=== PATIENT | female | born 1965 | race Caucasian/White ===

== ENCOUNTER 2018-07-20 10:49 | Observation (INO) ==
--- NOTE | 2018-07-20 11:15 | Emergency Department Note ---
Disposition Clinical Impression: Suicidal ideation Disposition: Admitted As Inpatient Condition: Good Psych HPI - General Chief Complaint: ED Psychiatric Symptoms Stated Complaint: SI Time Seen by Provider: 07/20/18 10:57 Source: patient Mode of arrival: private vehicle Limitations: no limitations Nursing Notes Reviewed: Yes Vital Signs Reviewed: Yes - History of Present Illness HPI Narrative: 52-year-old female history of depression presents for worsening depression and thoughts of suicidal ideation. Reports that she has had increased stress at her work. She has discussed with her boss for potentially changing her job. States that she has tried to hurt herself one time in the past requiring psychiatric admission by drug ingestion. Denies any auditory or visual hallucinations. She is not sure she would hurt herself or not. Denies any homicidal ideation. Denies any ingestions today. No alcohol or drug use. She reports compliance with her antidepressant medications. No other complaints. Pt complaint: suicidal ideation, feels depressed Onset (ago): day(s) Duration: constant History of similar episodes: Yes Improves with: none Worsens with: none Associated Psychiatric Symptoms: depression, suicidal ideation Associated symptoms: Reports: headache (from crying) Traumatic symptoms: denies traumatic injury Treatments prior to arrival: none Self harm or harm to others: admits thoughts of self harm - Related Data Home Medications Medication Instructions Recorded Confirmed Albuterol Sulfate [Albuterol 2 puff IH Q4HR PRN 06/07/16 06/07/16 Inhaler] Ascorbate Calcium [Vitamin C] 500 mg PO DAILY 06/07/16 06/07/16 Cholecalciferol (D-3) [Vitamin D] 1,000 unit PO MOTUWETHFR 06/07/16 06/07/16 Cholecalciferol (D-3) [Vitamin D] 2,000 unit PO SUSA 06/07/16 06/07/16 Citalopram [CeleXA] 20 mg PO HS 06/07/16 06/07/16 Docusate [Colace] 100 mg PO DAILY PRN 06/07/16 06/07/16 Lactobacillus Combination No.8 1 tab PO DAILY 06/07/16 06/07/16 [Adult Probiotic] [place]-3 Fatty Acids/Fish Oil 1 each PO DAILY 06/07/16 06/07/16 [[place]-3 Fish Oil 1,000 mg Sfgl] Tamoxifen [Nolvadex] 20 mg PO HS 06/07/16 06/07/16 Ubidecarenone [Co Q10] 100 mg PO DAILY 06/07/16 06/07/16 traMADol [Ultram] 50 mg PO DAILY PRN 06/07/16 06/07/16 Previous Rx's Medication Instructions Recorded Acetaminophen [Tylenol] 650 mg PO Q6HR PRN #0 tablet 03/11/16 Ibuprofen [Motrin] 600 mg PO Q6HR PRN #40 tab 06/08/16 OxyCODONE/APAP 5/325 [Percocet 1 each PO Q4HR PRN #40 tablet 06/08/16 5/325 MG] Amoxicillin 875 mg PO BID #14 tablet 01/07/17 Clindamycin [Cleocin] 150 mg PO Q6HR #7 capsule 09/08/17 HYDROcodone/Acet 5/325 mg [[place] 1 tab PO Q6H PRN #14 tab 09/08/17 5-325 mg] Ibuprofen [Motrin] 600 mg PO Q8HR #20 tab 09/08/17 Acyclovir [Zovirax] 800 mg PO 5XD #50 tablet 09/16/17 Amoxicillin 875 mg PO BID #20 tablet 09/16/17 Benzonatate [Tessalon] 200 mg PO TID PRN #30 capsule 10/09/17 cephALEXin [Keflex] 500 mg PO QID #40 capsule 10/09/17 methylPREDNISolone [Medrol] 4 mg PO TAPER #21 tablet 10/09/17 Allergies Allergy/AdvReac Type Severity Reaction Status Date / Time bupropion [From Wellbutrin] AdvReac HEART Verified 07/20/18 11:03 RACING fluoxetine [From Prozac] AdvReac HEART Verified 07/20/18 11:03 RACING All systems ED: reviewed and negative except as stated. Neurological: Reports: headache Psychiatric: Reports: anxiety, depression, suicidal thoughts. Denies: homicidal thoughts, auditory hallucinations, visual hallucinations Past Medical History - Past Medical History Attestation: Yes The following information was validated with the patient. Source: patient Medical history: Reports: cancer, kidney stones Surgical history: Reports: breast surgery, cancer surgery Psychiatric history: Reports: depression - Social History Smoking Status: Never smoker Smokeless Tobacco Status: No Alcohol use: Reports: none Drug use: Reports: none Physical Exam - General Limitations: no limitations General appearance: alert, other (Tearful) - Head Head exam: atraumatic, normocephalic, normal inspection - Eye Eye exam: Present: normal appearance - ENT ENT exam: normal exam - Neck Neck exam: Present: normal inspection - Chest Chest inspection: Present: normal inspection, symmetric chest wall rise - Respiratory Respiratory exam: Present: normal lung sounds bilaterally - Cardiovascular Cardiovascular exam: Present: regular rate, normal rhythm, normal heart sounds - Abdominal Exam Abdominal exam: Present: soft, Non-Tender. Absent: tenderness, distention, rigidity - Extremities Exam Extremities exam: Present: normal inspection, full ROM - Expanded Upper Extremity Exam Shoulder exam: Present: normal inspection, full ROM Arm exam: Present: normal inspection, full ROM Elbow exam: Present: normal inspection, full ROM Forearm/Wrist exam: Present: normal inspection, full ROM Hand exam: Present: normal inspection, full ROM - Expanded Lower Extremity Exam Hip/Pelvis exam: Present: normal inspection, full ROM Upper leg exam: Present: normal inspection, full ROM Knee exam: Present: normal inspection, full ROM Lower leg exam: Present: normal inspection, full ROM Ankle exam: Present: normal inspection, full ROM Foot/toe exam: Present: normal inspection, full ROM - Neurological Exam Neurological exam: Present: alert, other (GCS 15. No focal deficits) - Psychiatric Psychiatric exam: Present: anxious, suicidal ideation - Skin Skin exam: Present: warm, dry Course Course Narrative: Patient seen and examined. Medical clearance labs for psychiatric evaluation. [place] slipped for suicidal ideation. - Reevaluation(s) Reevaluation #1: Medically cleared. Evaluated by psychiatry. Deemed her appropriate for inpatient admission. Vital Signs Temperature 97.9 F 07/20/18 10:59 Pulse Rate 73 07/20/18 10:59 Respiratory Rate 16 07/20/18 10:59 Blood Pressure 137/89 07/20/18 10:59 O2 Sat by Pulse Oximetry 98 07/20/18 10:59 Temperature 97.9 F 07/20/18 10:59 Pulse Rate 73 07/20/18 10:59 Respiratory Rate 16 07/20/18 10:59 Blood Pressure 137/89 07/20/18 10:59 O2 Sat by Pulse Oximetry 98 07/20/18 10:59 Oxygen Delivery Oxygen Delivery Room Air Psych - MDM Narrative Medical decision making narrative: 52-year-old female with worsening depression and anxiety in conjunction with recent suicidal ideations. Medically cleared. Accepted to psychiatry for inpatient management. - Lab Data Lab results reviewed: Yes I reviewed the patient's lab results. Result diagrams: 07/20/18 12:33 07/20/18 12:33 Lab Results 07/20/18 07/20/18 07/20/18 Range/Units 11:36 11:36 12:33 WBC 5.4 (4.3-11.1) K/mcL RBC 4.80 (3.82-4.97) M/mcL Hgb 14.5 (11.5-15.4) g/dL Hct 42.3 (35.3-44.9) % MCV 88.1 (83.0-100.0) fL MCH 30.2 (28.0-33.3) pg MCHC 34.3 (31.6-35.5) g/dL RDW 12.3 (11.5-14.5) % Plt Count 126 L (140-400) K/mcL MPV 11.6 (9.4-12.4) fL Immature Gran % 0.2 (0-4) % Seg Neutrophils % 54.4 % Lymphocytes % 34.7 % Monocytes % 8.5 % Eosinophils % 1.8 % Basophils % 0.4 % Neutrophils # 3.0 (1.6-8.9) K/mcL Lymphocytes # 1.9 (0.6-4.6) K/mcL Monocytes # 0.5 (0.0-1.3) K/mcL Eosinophils # 0.1 (0.0-0.6) K/mcL Basophils # 0.0 (0.0-0.2) K/mcL Sodium (136-145) mEq/L Potassium (3.5-5.1) mEq/L Chloride (98-107) mEq/L Carbon Dioxide (23-29) mEq/L BUN (6-20) mg/dL Creatinine (0.60-1.20) mg/dL Est GFR ( Amer) (> 60) Est GFR (Non-Af Amer) (> 60) BUN/Creatinine Ratio (6-26) Glucose (70-105) mg/dL Calculated Osmolality (280-300) Calcium (8.6-10.3) mg/dL TSH (0.340-5.600) mcIU/mL Urine Color Yellow (Yellow) Urine Clarity Clear (Clear) Urine pH 6.0 (5.0-8.0) pH Units Ur Specific [place] 1.017 (1.010-1.025) Urine Protein Negative (Neg-Trace) mg/dL Urine Glucose (UA) Normal (Normal) mg/dL Urine Ketones Negative (Negative) mg/dL Urine Blood Negative (Negative) Urine Nitrite Negative (Negative) Urine Bilirubin Negative (Negative) Urine Urobilinogen Normal (Normal) mg/dL Ur Leukocyte Esterase Negative (Negative) Salicylates (15.0-30.0) mg/dL Urine Opiates Screen Negative (Jrezwm=763) ng/mL Acetaminophen (10-20) mcg/mL Ur Barbiturates Screen Negative (Snelfr=458) ng/mL Ur Phencyclidine Scrn Negative (Cutoff=25) ng/mL Ur Amphetamines Screen Negative (Jbqiiz=0202) ng/mL U Benzodiazepines Scrn Negative (Qqnazm=674) ng/mL Urine Cocaine Screen Negative (Cutoff= 300) ng/mL U Marijuana (THC) Screen Negative (Cutoff = 50) ng/mL Ur Drug Screen Interp See Below Ethyl Alcohol (Less than 10) mg/dL 07/20/18 Range/Units 12:33 WBC (4.3-11.1) K/mcL RBC (3.82-4.97) M/mcL Hgb (11.5-15.4) g/dL Hct (35.3-44.9) % MCV (83.0-100.0) fL MCH (28.0-33.3) pg MCHC (31.6-35.5) g/dL RDW (11.5-14.5) % Plt Count (140-400) K/mcL MPV (9.4-12.4) fL Immature Gran % (0-4) % Seg Neutrophils % % Lymphocytes % % Monocytes % % Eosinophils % % Basophils % % Neutrophils # (1.6-8.9) K/mcL Lymphocytes # (0.6-4.6) K/mcL Monocytes # (0.0-1.3) K/mcL Eosinophils # (0.0-0.6) K/mcL Basophils # (0.0-0.2) K/mcL Sodium 139 (136-145) mEq/L Potassium 4.2 (3.5-5.1) mEq/L Chloride 106 (98-107) mEq/L Carbon Dioxide 27 (23-29) mEq/L BUN 14 (6-20) mg/dL Creatinine 0.85 (0.60-1.20) mg/dL Est GFR ( Amer) > 60 (> 60) Est GFR (Non-Af Amer) > 60 (> 60) BUN/Creatinine Ratio 16 (6-26) Glucose 88 (70-105) mg/dL Calculated Osmolality 288 (280-300) Calcium 9.5 (8.6-10.3) mg/dL TSH 1.987 (0.340-5.600) mcIU/mL Urine Color (Yellow) Urine Clarity (Clear) Urine pH (5.0-8.0) pH Units Ur Specific [place] (1.010-1.025) Urine Protein (Neg-Trace) mg/dL Urine Glucose (UA) (Normal) mg/dL Urine Ketones (Negative) mg/dL Urine Blood (Negative) Urine Nitrite (Negative) Urine Bilirubin (Negative) Urine Urobilinogen (Normal) mg/dL Ur Leukocyte Esterase (Negative) Salicylates < 2.5 L (15.0-30.0) mg/dL Urine Opiates Screen (Jwrpiw=610) ng/mL Acetaminophen < 10 L (10-20) mcg/mL Ur Barbiturates Screen (Qjmipl=928) ng/mL Ur Phencyclidine Scrn (Cutoff=25) ng/mL Ur Amphetamines Screen (Qjzzol=0645) ng/mL U Benzodiazepines Scrn (Hwbzva=432) ng/mL Urine Cocaine Screen (Cutoff= 300) ng/mL U Marijuana (THC) Screen (Cutoff = 50) ng/mL Ur Drug Screen Interp Ethyl Alcohol 14 H (Less than 10) mg/dL Psychiatric Medical Clearance - Medical Clearance Checklist Medical History: No Social History Section defined Current Vitals: Last Vital Signs Temp 97.9 F 07/20/18 10:59 Pulse 73 07/20/18 10:59 Resp 16 07/20/18 10:59 BP 137/89 07/20/18 10:59 Pulse Ox 98 07/20/18 10:59 Psychiatric Lab Panel: Drug Levels and Toxicity 07/20/18 07/20/18 11:36 12:33 Urine Opiates Screen Negative Acetaminophen < 10 L Ur Barbiturates Screen Negative Ur Phencyclidine Scrn Negative Ur Amphetamines Screen Negative U Benzodiazepines Scrn Negative Urine Cocaine Screen Negative U Marijuana (THC) Screen Negative Ethyl Alcohol 14 H Abnormal Labs: Abnormal lab results Plt Count 126 K/mcL (140-400) L 07/20/18 12:33 Salicylates < 2.5 mg/dL (15.0-30.0) L 07/20/18 12:33 Acetaminophen < 10 mcg/mL (10-20) L 07/20/18 12:33 Ethyl Alcohol 14 mg/dL (Less than 10) H 07/20/18 12:33 Attestation Statement - Attestation Attestation: I, Nemesio Burch, examined this patient and my medical decision-making was reviewed with the HEALTH PROMOTION OFFICER/PA/Advanced Practice Nurse/Resident Physician. I agree with the documented findings, disposition and treatment plan as described except to the extent set forth below. 52-year-old female presents emergency Department with concerns of suicidal ideation. Patient states she has severe depression, had a suicidal attempt in the past however this time she did not have a plan to hurt herself. Patient states she did not attempt to hurt herself prior to arrival. Patient states she has been feeling increasingly depressed and stressed about her work. Patient reports increased fatigue and feelings of hopelessness and helplessness. Patient will be medically cleared and evaluated by behavioral health. Patient evaluated by behavioral health and will be admitted to for further care and evaluation.
[2018-07-20 11:54] LABS: Bilirubin,Urine Negative (Negative); Blood,Urine Negative (Negative); Clarity,Urine Clear (Clear); Color,Urine Yellow (Yellow); Glucose,Urine (UA) Normal (Normal); Ketones,Urine Negative (Negative); Leukocyte Esterase,Urine Negative (Negative); Nitrite,Urine Negative (Negative); Protein,Urine Negative (Neg-Trace); Specific Gravity,Urine 1.017 (1.010-1.025); Urobilinogen,Urine Normal (Normal)
[2018-07-20 12:04] LABS: Amphetamine Screen,Urine Negative ng/mL (Cutoff=1000); Barbiturate Screen,Urine Negative ng/mL (Cutoff=200); Benzodiazepines Screen,Urine Negative ng/mL (Cutoff=200); Cannabinoid Screen,Urine Negative ng/mL (Cutoff = 50); Cocaine Screen,Urine Negative ng/mL (Cutoff= 300); Opiate Screen,Urine Negative ng/mL (Cutoff=300); Phencyclidine Screen,Urine Negative ng/mL (Cutoff=25)
[2018-07-20 13:07] LABS: Basophils % 0.4 %; Eosinophils # 0.1 K/mcL (0.0-0.6); Eosinophils % 1.8 %; Hematocrit 42.3 % (35.3-44.9); Hemoglobin 14.5 g/dL (11.5-15.4); Immature Granulocytes % 0.2 % (0-4); Lymphocytes # 1.9 K/mcL (0.6-4.6); Lymphocytes % 34.7 %; Mean Corpuscular HGB Conc 34.3 g/dL (31.6-35.5); Mean Corpuscular Hemoglobin 30.2 pg (28.0-33.3); Mean Corpuscular Volume 88.1 fL (83.0-100.0); Mean Platelet Volume 11.6 fL (9.4-12.4); Monocytes # 0.5 K/mcL (0.0-1.3); Monocytes % 8.5 %; Platelet Count 126 K/mcL (140-400); Red Cell Distribution Width 12.3 % (11.5-14.5); Segmented Neutrophils % 54.4 %
[2018-07-20 13:34] LABS: Acetaminophen < 10 mcg/mL (10-20); BUN/Creatinine Ratio 16 (6-26); Blood Urea Nitrogen 14 mg/dL (6-20); Calcium 9.5 mg/dL (8.6-10.3); Carbon Dioxide 27 mEq/L (23-29); Chloride 106 mEq/L (98-107); Glucose 88 mg/dL (70-105); Osmolality,Calculated 288 (280-300); Potassium 4.2 mEq/L (3.5-5.1); Salicylate < 2.5 mg/dL (15.0-30.0); Sodium 139 mEq/L (136-145); eGFR For Non-African Americans > 60 (> 60)
[2018-07-20 13:42] LABS: Thyroid Stimulating Hormone 1.987 mcIU/mL (0.340-5.600)
[2018-07-20] MEDS ORDERED: hydrOXYzine pamoate 25 MG CAPSULE PO PRN (16:04)
[2018-07-20] MEDS ORDERED: *HR* LORazepam 1 MG TABLET PO PRN (16:04)
[2018-07-20] MEDS ORDERED: Mag Hydrox/Al Hydrox/Simeth 30 ML UDC PO PRN (16:04)
[2018-07-20] MEDS ORDERED: traZODone 50 MG TABLET PO PRN (16:04)
[2018-07-20] MEDS ORDERED: Acetaminophen 325 MG TABLET PO PRN (16:04)
[2018-07-20] MEDS ORDERED: *HR* LORazepam 2 MG/ML VIAL IM PRN (16:04)
[2018-07-20] MEDS ORDERED: MOM Conc 10 ML UD.LIQ PO PRN (16:04)
[2018-07-20] MEDS ORDERED: Haloperidol Lactate 5 MG/ML VIAL IM PRN (16:04)
[2018-07-20] MEDS ORDERED: traMADol 50 MG TABLET PO PRN (16:12)
[2018-07-20 18:06] LABS: Ethanol < 10 mg/dL (Less than 10)
[2018-07-21 09:01] VITALS: BP 147/81
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
== END 2018-07-21 17:25 | disposition home or self-care (01) ==
LOC: EMEROOARM 10:49 → 1ANU 10:49
PROVIDERS: ADMIT Psychiatry & Neurology Forensic Psychiatry; ATTEND Psychiatry & Neurology Forensic Psychiatry